=== PATIENT | female | born 1935 | race Caucasian/White ===

== ENCOUNTER 2016-12-11 12:15 | Inpatient (IN) | payer MEDICARE, OTHER ==
[~2016-12-11] VITALS: Ht 165.1 cm; Wt 71.3 kg
[~2016-12-11 12:15] MED LIST: AMLO-511 PO; ATEN25 PO; AZASITE OU; AZITHROMYCIN; BIMATOPROST; BRIMONIDINE; BROMFENAC; CALC3.8S NS; CETI-193 GT; CLOP75 PO; COLE625 PO; DIPHENHYDRAMINE; EPINASTINE; EZET10 PO; FISH1200 PO; FOLI0.4T2 PO; GABA300T PO; GEMFIBROZIL; HYDR12.54 PO; KETOPROFEN; LUMIGA OD; OMEP20CA10 PO; TIMOLOL; [UNRECOGNIZED DRUG - OTHER]; [UNRECOGNIZED DRUG - OTHER]; [UNRECOGNIZED DRUG - OTHER]; prednisolone OU
[2016-12-11 15:33] LABS: BASOPHILS % (AUTO) 0.5 % (0.0-2.0); EOSINOPHILS % (AUTO) 2.3 % (1.0-6.0); LYMPHOCYTES # (AUTO) 1.6 K/uL (1.0-4.8); LYMPHOCYTES % (AUTO) 24.4 % (22.0-44.0); MEAN CORPUSCULAR HEMOGLOBIN 30.1 pg (26.0-34.0); MEAN CORPUSCULAR VOLUME 91 fL (80-100); MONOCYTES # (AUTO) 0.6 K/uL (0.1-1.0); MONOCYTES % (AUTO) 9.1 % (2.0-9.0); NEUTROPHILS # (AUTO) 4.3 K/uL (1.8-7.7); NEUTROPHILS % (AUTO) 63.7 % (40.0-70.0); PLATELET COUNT (AUTO) 195 K/uL (150-450); RED BLOOD CELL COUNT(AUTO) 1.74 MIL/uL (4.00-5.20); WHITE BLOOD COUNT (AUTO) 6.8 K/uL (4.5-11.0)
[2016-12-11 15:41] LABS: ANION GAP 10 mmol/L (8-16); CALCIUM, TOTAL 8.7 mg/dL (8.8-10.5); CARBON DIOXIDE 22 mmol/L (22-29); CHLORIDE 99 mmol/L (98-107); GLOMERULAR FILTR. RATE CALC > 60 mL/min (>60); POTASSIUM 4.1 mmol/L (3.5-5.1); SODIUM SERUM 131 mmol/L (136-145); UREA NITROGEN, BLOOD 19 mg/dL (7-18)
[2016-12-11 15:47] LABS: HEMATOCRIT 15.9 % (36-46); HEMOGLOBIN 5.2 g/dL (12.0-16.0)
[2016-12-11 15:49] LABS: INR 1.1 (0.9-1.1); PROTHROMBIN TIME 11.8 SEC (9.4-11.6)
[2016-12-11 15:52] LABS: B-TYPE NATRIURETIC PEPTIDE 380 pg/mL (0-100)
[2016-12-11 16:10] LABS: ALANINE AMINOTRANSFERASE 17 U/L (12-78); ALBUMIN 3.9 g/dL (3.4-5.0); ASPARTATE AMINOTRANSFERASE 15 U/L (15-37); BILIRUBIN,TOTAL 0.3 mg/dL (0.1-1.0); CREATINE KINASE MB 2.7 ng/mL (0-5); CREATINE KINASE, TOTAL 121 U/L (26-192); TOTAL PROTEIN, SERUM 6.9 g/dL (6.4-8.2)
[2016-12-11] MEDS ORDERED: SODIUM CHLORIDE 0.9% 250 ML IV ONE (16:53)
[2016-12-11 19:46] VITALS: BP 139/76
[2016-12-11] MEDS ORDERED: DiphenhydrAMINE HCL 25 MG CAPSULE PO PRN (22:30)
[2016-12-11 22:54] VITALS: BP 146/66
[2016-12-12] VITALS (18 sets, daily range): BP systolic 100–148; BP diastolic 44–90
[2016-12-12] MEDS: ACETAMINOPHEN 650 MG/20.3 ML SOLUTION UDCUP PO PRN ×2 (00:07→10:00)
[2016-12-12 06:07] LABS: MEAN CORPUSCULAR HGB CONC 32.6 G/dL (31.0-37.0); MEAN CORPUSCULAR VOLUME 89 fL (80-100); PLATELET COUNT (AUTO) 181 K/uL (150-450); RED BLOOD CELL COUNT(AUTO) 2.33 MIL/uL (4.00-5.20); RED CELL DISTRIBUTION WIDTH 14.7 % (11.5-14.5); WHITE BLOOD COUNT (AUTO) 7.8 K/uL (4.5-11.0)
[2016-12-12 06:25] LABS: CHOL/HDL RATIO 3.3 (3.9-5.7); PHOSPHORUS 3.4 mg/dL (2.5-4.9)
[2016-12-12 06:58] LABS: HEMATOCRIT 20.7 % (36-46); HEMOGLOBIN 6.8 g/dL (12.0-16.0)
[2016-12-12] MEDS: COLESEVELAM HCL 625 MG TABLET PO SCH ×3 (08:00→18:31)
[2016-12-12 08:16] LABS: VITAMIN B12 LEVEL 371 pg/mL (211-911)
[2016-12-12] MEDS ORDERED: SODIUM CHLORIDE 0.9% 1,000 ML IV ONE ×2 (08:45→11:05)
[2016-12-12] MEDS ORDERED: CLOPIDOGREL BISULFATE 75 MG TABLET PO SCH (09:00)
[2016-12-12] MEDS ORDERED: OMEPRAZOLE 20 MG CAPSULE PO SCH (09:00)
[2016-12-12] MEDS: AmLODIPine BESYLATE 5 MG TABLET PO SCH (09:00)
[2016-12-12 09:49] LABS: BAND NEUTROPHILS % (MANUAL) 1 % (1-5); LYMPHOCYTES % (MANUAL) 30 % (22-44); RBC MORPHOLOGY COMMENT ABNORMAL RBC MORPH; TOTAL CELLS COUNTED 100
[2016-12-12] MEDS: CALCITONIN,SALMON,SYNTHETIC 200 UNITS/SPRAY 3.7 ML BOTTLE NASAL SCH (10:01)
[2016-12-12] MEDS ORDERED: LIDOCAINE HCL/PF 2% 5 ML VIAL INJ ONE (12:00)
[2016-12-12] MEDS ORDERED: PROPOFOL 1% 20 ML VIAL IVP ONE (12:00)
[2016-12-12] MEDS ORDERED: SODIUM CHLORIDE 0.9% 0 ML IV ONE (13:42)
[2016-12-12] MEDS ORDERED: SODIUM CHLORIDE 0.9% 250 ML IV ONE (14:03)
[2016-12-12] MEDS: PANTOPRAZOLE SODIUM 40 MG DR TABLET PO SCH (14:09)
[2016-12-12] MEDS: HYDROCHLOROTHIAZIDE 25 MG TABLET PO SCH (14:09)
[2016-12-12] MEDS: EZETIMIBE 10 MG TABLET PO SCH (14:10)
[2016-12-12] MEDS: ATENOLOL 25 MG TABLET PO SCH (14:10)
[2016-12-12] MEDS: FISH OIL/OMEGA-3 FATTY ACIDS 500 MG CAPSULE PO SCH ×3 (14:11→20:06)
[2016-12-12] MEDS: FOLIC ACID 0.4 MG TABLET PO SCH (14:11)
[2016-12-12] MEDS: GABAPENTIN 300 MG CAPSULE PO SCH (20:06)
[2016-12-13] VITALS (15 sets, daily range): BP systolic 92–129; BP diastolic 45–86
[2016-12-13 07:02] LABS: PHOSPHORUS 2.9 mg/dL (2.5-4.9)
[2016-12-13] MEDS: COLESEVELAM HCL 625 MG TABLET PO SCH ×3 (08:06→18:00)
[2016-12-13] MEDS: FOLIC ACID 0.4 MG TABLET PO SCH (08:07)
[2016-12-13] MEDS: FISH OIL/OMEGA-3 FATTY ACIDS 500 MG CAPSULE PO SCH (08:07)
[2016-12-13] MEDS: AmLODIPine BESYLATE 5 MG TABLET PO SCH (08:08)
[2016-12-13] MEDS: HYDROCHLOROTHIAZIDE 25 MG TABLET PO SCH (08:08)
[2016-12-13] MEDS: PANTOPRAZOLE SODIUM 40 MG DR TABLET PO SCH (08:09)
[2016-12-13] MEDS: ATENOLOL 25 MG TABLET PO SCH (08:09)
[2016-12-13] MEDS: EZETIMIBE 10 MG TABLET PO SCH (08:09)
[2016-12-13 09:29] LABS: ANION GAP 12 mmol/L (8-16); CALCIUM, TOTAL 8.3 mg/dL (8.8-10.5); CARBON DIOXIDE 22 mmol/L (22-29); CHLORIDE 101 mmol/L (98-107); CREATININE 0.66 mg/dL (0.60-1.30); GLOMERULAR FILTR. RATE CALC > 60 mL/min (>60); POTASSIUM 3.6 mmol/L (3.5-5.1); SODIUM SERUM 135 mmol/L (136-145); UREA NITROGEN, BLOOD 11 mg/dL (7-18)
[2016-12-13 10:48] LABS: BASOPHILS # (AUTO) 0.03 K/uL (0.00-0.20); BASOPHILS % (AUTO) 0.5 % (0.0-2.0); EOSINOPHILS # (AUTO) 0.19 K/uL (0.00-0.70); EOSINOPHILS % (AUTO) 2.69 % (1.0-6.0); HEMATOCRIT 24.1 % (36-46); HEMOGLOBIN 7.7 g/dL (12.0-16.0); LYMPHOCYTES # (AUTO) 1.5 K/uL (1.0-4.8); LYMPHOCYTES % (AUTO) 21.4 % (22.0-44.0); MEAN CORPUSCULAR HEMOGLOBIN 28.5 pg (26.0-34.0); MEAN CORPUSCULAR HGB CONC 31.8 G/dL (31.0-37.0); MEAN CORPUSCULAR VOLUME 90 fL (80-100); MONOCYTES # (AUTO) 0.7 K/uL (0.1-1.0); MONOCYTES % (AUTO) 9.1 % (2.0-9.0); NEUTROPHILS # (AUTO) 4.7 K/uL (1.8-7.7); NEUTROPHILS % (AUTO) 66.3 % (40.0-70.0); PLATELET COUNT (AUTO) 167 K/uL (150-450); RED BLOOD CELL COUNT(AUTO) 2.68 MIL/uL (4.00-5.20); RED CELL DISTRIBUTION WIDTH 15.3 % (11.5-14.5); WHITE BLOOD COUNT (AUTO) 7.1 K/uL (4.5-11.0)
[2016-12-13] MEDS: ACETAMINOPHEN 650 MG/20.3 ML SOLUTION UDCUP PO PRN (10:56)
[2016-12-13] MEDS: CALCITONIN,SALMON,SYNTHETIC 200 UNITS/SPRAY 3.7 ML BOTTLE NASAL SCH (10:56)
[2016-12-13] MEDS ORDERED: MAGNESIUM HYDROXIDE SUSPENSION 30 ML UDCUP PO PRN (11:30)
[2016-12-13] MEDS ORDERED: SODIUM CHLORIDE 0.9% 250 ML IV ONE (12:21)
[2016-12-13] MEDS ORDERED: PEG 3350/NA SULF,BICARB,CL/KCL 4000 ML SOLUTION PO ONE (14:45)
[2016-12-13] MEDS: GABAPENTIN 300 MG CAPSULE PO SCH (20:28)
[2016-12-14 04:05] VITALS: BP 120/63
[2016-12-14 07:27] LABS: BASOPHILS # (AUTO) 0.03 K/uL (0.00-0.20); BASOPHILS % (AUTO) 0.4 % (0.0-2.0); EOSINOPHILS # (AUTO) 0.27 K/uL (0.00-0.70); EOSINOPHILS % (AUTO) 4.15 % (1.0-6.0); HEMATOCRIT 25.4 % (36-46); HEMOGLOBIN 8.3 g/dL (12.0-16.0); LYMPHOCYTES # (AUTO) 1.3 K/uL (1.0-4.8); LYMPHOCYTES % (AUTO) 19.8 % (22.0-44.0); MEAN CORPUSCULAR HEMOGLOBIN 28.9 pg (26.0-34.0); MEAN CORPUSCULAR HGB CONC 32.6 G/dL (31.0-37.0); MEAN CORPUSCULAR VOLUME 89 fL (80-100); MONOCYTES # (AUTO) 0.7 K/uL (0.1-1.0); MONOCYTES % (AUTO) 10.3 % (2.0-9.0); NEUTROPHILS # (AUTO) 4.2 K/uL (1.8-7.7); NEUTROPHILS % (AUTO) 65.3 % (40.0-70.0); PLATELET COUNT (AUTO) 149 K/uL (150-450); RED BLOOD CELL COUNT(AUTO) 2.86 MIL/uL (4.00-5.20); RED CELL DISTRIBUTION WIDTH 14.8 % (11.5-14.5); WHITE BLOOD COUNT (AUTO) 6.4 K/uL (4.5-11.0)
[2016-12-14] MEDS: COLESEVELAM HCL 625 MG TABLET PO SCH ×3 (07:46→17:20)
[2016-12-14 08:01] LABS: ALANINE AMINOTRANSFERASE 17 U/L (12-78); ALBUMIN 3.1 g/dL (3.4-5.0); ANION GAP 9 mmol/L (8-16); ASPARTATE AMINOTRANSFERASE 13 U/L (15-37); BILIRUBIN,TOTAL 0.6 mg/dL (0.1-1.0); CARBON DIOXIDE 26 mmol/L (22-29); CHLORIDE 99 mmol/L (98-107); CREATININE 0.56 mg/dL (0.60-1.30); GLOMERULAR FILTR. RATE CALC > 60 mL/min (>60); PHOSPHORUS 2.9 mg/dL (2.5-4.9); POTASSIUM 3.1 mmol/L (3.5-5.1); SODIUM SERUM 134 mmol/L (136-145); TOTAL PROTEIN, SERUM 5.5 g/dL (6.4-8.2); UREA NITROGEN, BLOOD 11 mg/dL (7-18)
[2016-12-14 08:30] VITALS: BP 119/49
[2016-12-14] MEDS ORDERED: SODIUM CHLORIDE 0.9% 250 ML IV ONE (09:14)
[2016-12-14] MEDS ORDERED: POTASSIUM CHLORIDE 20 MEQ ER TABLET PO ONE (09:15)
[2016-12-14] MEDS ORDERED: POTASSIUM CHL 10 MEQ/WATER 50 ML IV ONE ×2 (09:15→10:15)
[2016-12-14] MEDS ORDERED: OXYGEN THERAPY IH SCH (09:30)
[2016-12-14] MEDS: POTASSIUM CHL 10 MEQ/WATER 50 ML IV PRN ×3 (09:34→14:10)
[2016-12-14 11:45] VITALS: BP 110/57
[2016-12-14] MEDS: CALCITONIN,SALMON,SYNTHETIC 200 UNITS/SPRAY 3.7 ML BOTTLE NASAL SCH (12:05)
[2016-12-14] MEDS: FOLIC ACID 0.4 MG TABLET PO SCH (12:07)
[2016-12-14] MEDS: AmLODIPine BESYLATE 5 MG TABLET PO SCH (12:07)
[2016-12-14] MEDS: HYDROCHLOROTHIAZIDE 25 MG TABLET PO SCH (12:08)
[2016-12-14] MEDS: EZETIMIBE 10 MG TABLET PO SCH (12:08)
[2016-12-14] MEDS: ATENOLOL 25 MG TABLET PO SCH (12:08)
[2016-12-14] MEDS: PANTOPRAZOLE SODIUM 40 MG DR TABLET PO SCH (12:08)
[2016-12-14] MEDS ORDERED: TERI2.4P SQ (12:32)
[2016-12-14] MEDS ORDERED: TIOT4MIS3 IH (12:34)
[2016-12-14] MEDS ORDERED: AZEL30SP2 NASAL (12:36)
[2016-12-14] MEDS: ACETAMINOPHEN 650 MG/20.3 ML SOLUTION UDCUP PO PRN (14:08)
[2016-12-14 16:15] VITALS: BP 93/62
[2016-12-14 17:56] VITALS: BP 108/61
[2016-12-14] MEDS ORDERED: PROPOFOL 1% 20 ML VIAL IVP ONE (18:24)
== END 2016-12-14 18:25 | disposition still patient (30) | DRG 812 ==
LOC: EMS 12:18 → 5S 16:35
PROVIDERS: ADMIT Internal Medicine; ATTEND Internal Medicine
PROC: 30233N1 Transfusion of Nonautologous Red Blood Cells into Peripheral Vein, Percutaneous Approach (ICD-10-PCS; 2016-12-12)
PROC: 0DJ08ZZ Inspection of Upper Intestinal Tract, Via Natural or Artificial Opening Endoscopic (ICD-10-PCS; principal; 2016-12-12 12:00)
PROC: 30233N1 Transfusion of Nonautologous Red Blood Cells into Peripheral Vein, Percutaneous Approach (ICD-10-PCS; 2016-12-13)
PROC: 0DJD8ZZ Inspection of Lower Intestinal Tract, Via Natural or Artificial Opening Endoscopic (ICD-10-PCS; 2016-12-14)
DX: D64.9 Anemia, unspecified (principal); M84.40XA Pathological fracture, unspecified site, initial encounter for fracture; E78.2 Mixed hyperlipidemia; M81.0 Age-related osteoporosis without current pathological fracture; J45.909 Unspecified asthma, uncomplicated; K21.9 Gastro-esophageal reflux disease without esophagitis; M17.0 Bilateral primary osteoarthritis of knee; J30.1 Allergic rhinitis due to pollen; D50.9 Iron deficiency anemia, unspecified; E87.6 Hypokalemia; F17.200 Nicotine dependence, unspecified, uncomplicated; H40.2223 Chronic angle-closure glaucoma, left eye, severe stage; H40.2213 Chronic angle-closure glaucoma, right eye, severe stage; I25.10 Atherosclerotic heart disease of native coronary artery without angina pectoris; I35.0 Nonrheumatic aortic (valve) stenosis; J44.9 Chronic obstructive pulmonary disease, unspecified; K31.7 Polyp of stomach and duodenum; K44.9 Diaphragmatic hernia without obstruction or gangrene; K64.8 Other hemorrhoids; Z82.49 Family history of ischemic heart disease and other diseases of the circulatory system; Z83.3 Family history of diabetes mellitus; Z85.828 Personal history of other malignant neoplasm of skin; Z95.1 Presence of aortocoronary bypass graft; Z95.2 Presence of prosthetic heart valve; Z82.0 Family history of epilepsy and other diseases of the nervous system; K59.01 Slow transit constipation; Z90.49 Acquired absence of other specified parts of digestive tract; Z84.89 Family history of other specified conditions; Z88.6 Allergy status to analgesic agent; Z88.0 Allergy status to penicillin; Z91.018 Allergy to other foods; Z88.3 Allergy status to other anti-infective agents; I11.0 Hypertensive heart disease with heart failure; I50.9 Heart failure, unspecified
CPT/HCPCS: 71020; 82271; 82607; 82746; 83540; 83550; 83735; 84100; 84132; 84439; 85007; 85651; 86850; 86870; 86880; 86900; 86901; 86905; 86921; 86922; 93005; 93306; 99291; J2704; J3480; J3490; J7030; J7050; P9016

== ENCOUNTER → 2017-12-24 | Outpatient (CLI) | payer MEDICARE, OTHER ==
[~2017-12-24] MED LIST changes: -ATEN25 PO; +ATEN25TA PO; -AZASITE OU; +AZEL30SP2 NASAL; -AZITHROMYCIN; -BIMATOPROST; -BRIMONIDINE; -BROMFENAC; -CETI-193 GT; -CLOP75 PO; -DIPHENHYDRAMINE; -EPINASTINE; -FISH1200 PO; -GEMFIBROZIL; -HYDR12.54 PO; -KETOPROFEN; -LUMIGA OD; +TERI2.4P SQ; -TIMOLOL; +TIOT4MIS3 IH; -[UNRECOGNIZED DRUG - OTHER]; -[UNRECOGNIZED DRUG - OTHER]; -[UNRECOGNIZED DRUG - OTHER]; -prednisolone OU
== END | disposition home or self-care (01) ==
LOC: RADPV 10:31
PROVIDERS: ATTEND Internal Medicine Cardiovascular Disease
DX: I08.1 Rheumatic disorders of both mitral and tricuspid valves (principal)
CPT/HCPCS: 93306

== ENCOUNTER → 2019-05-05 | Outpatient (CLI) | payer MEDICARE, OTHER ==
[~2019-05-05] MED LIST changes: -AMLO-511 PO; +AMLO5TAB9 PO; -EZET10 PO; +EZET10TA13 PO; +OMEP-50 PO; -OMEP20CA10 PO
== END | disposition home or self-care (01) ==
LOC: RADPV 09:29
PROVIDERS: ATTEND Internal Medicine Cardiovascular Disease
DX: I08.1 Rheumatic disorders of both mitral and tricuspid valves (principal); Z95.4 Presence of other heart-valve replacement
CPT/HCPCS: 93306